=== PATIENT | male | born 1960 | race Caucasian/White ===

== ENCOUNTER 2020-02-09 13:14 | Emergency (ER) | payer MEDICARE, SELFPAY ==
[2020-02-09 13:32] LABS: #Eosinphils 0.2 thou/uL (0.0-0.7); #Lymphocytes 1.4 thou/uL (1.20-3.40); #Monocytes 0.5 thou/uL (0.11-0.59); #Neutrophils 6.8 thou/uL (1.40-6.50); %Basophils 0.5 % (0.0-1.0); %Eosinophils 2.6 % (0.0-10.0); %Lymphocytes 16.1 % (21.0-51.0); %Monocytes 5.6 % (0.0-10.0); %Neutrophils 75.2 % (42.0-75.0); Hemoglobin 14.5 g/dL (14.0-18.0); Mean Corpuscular HGB CONC 34.2 g/dL (32.0-36.0); Mean Corpuscular Hemoglobin 32.5 pg (27.0-31.0); Mean Corpuscular Volume 95.1 fL (78.0-98.0); Mean Platelet Volume 6.4 fL (7.4-10.4); Platelet Count 347 thou/uL (130-400); RBC Distribution Width 11.3 % (11.5-14.5); Red Blood Cell (RBC) Count 4.47 mill/uL (4.70-6.10)
[2020-02-09 13:38] LABS: INR-International Normal Ratio 0.9; PTT 26.5 sec (22.9-36.1); Prothrombin Time 12.7 sec (12.0-14.7)
--- NOTE | 2020-02-09 13:38 | RAD ---
XR Chest 1 View Portable History: Trauma Comparison: None. Findings: Lungs are mildly hypoinflated with scattered atelectasis. No pneumothorax. No effusion. No acute displaced rib fracture. Impression: No acute intrathoracic abnormality.
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
--- NOTE | 2020-02-09 13:42 | CT ---
CT BRAIN WITHOUT CONTRAST: Date: 02/09/2020 HISTORY: Trauma. Headache. FINDINGS: No evidence of acute infarct, hemorrhage, midline shift, or abnormal extra-axial fluid collections ar e seen. The ventricular size is normal and the basilar cisterns are patent. The bony calvarium is int act. There is mucosal disease in the paranasal sinuses. A soft tissue contusion is seen in the right posterior parietal scalp with radiopaque densities suspicious for foreign bodies. IMPRESSION: No CT evidence of acute intracranial process. Findings discussed over the telephone with ER physician, Dr. Meza, at [phone] hours. CODE CR. POS: [facility]
[2020-02-09] MEDS ORDERED: CEFAZOLIN 1 GM VIAL ONE ×3 (13:51→14:02)
[2020-02-09] MEDS ORDERED: Boostrix 0.5 ML (Tdap) VIAL ONE (13:51)
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
[2020-02-09 14:04] LABS: ALT (SGPT) 18 U/L (8-55); AST (SGOT) 16 U/L (5-34); Albumin 3.8 g/dL (3.5-5.0); Alkaline Phosphatase 85 U/L (40-110); Anion Gap 14 mmol/L (10-20); BUN (Urea Nitrogen) 14 mg/dL (8.4-25.7); Bilirubin, Total 0.3 mg/dL (0.2-1.2); Calc. Creatinine Clearance 0 mL/min (70-130); Calcium 8.9 mg/dL (7.8-10.44); Carbon Dioxide 21 mmol/L (22-29); Chloride 102 mmol/L (98-107); Estimated GFR-MDRD 55; Globulin 2.7 g/dL (2.4-3.5); Glucose 94 mg/dL (70-105); Protein, Total 6.5 g/dL (6.0-8.3); Sodium 133 mmol/L (136-145)
[2020-02-09] MEDS ORDERED: Lidocaine 1% (PF) 30 ML VIAL ONE (14:09)
[2020-02-09] MEDS ORDERED: Fentanyl 100 MCG/2 ML VIAL ONE (14:18)
[2020-02-09] MEDS ORDERED: Iopamidol-370 76% 500 ML 1 ML ONE (14:21)
[2020-02-09 14:28] LABS: Acetaminophen Less than 6.0 mcg/mL (10.0-30.0); Alcohol 66 mg/dL (Less than 10); CK (CPK) 184 U/L (30-200); Salicylate Less than 8.0 mg/dL (15.0-30.0)
[2020-02-09] MEDS ORDERED: Ibuprofen 800 MG TAB ONE (23:32)
[2020-02-09] MEDS ORDERED: Acetaminophen 500 MG TAB ONE (23:32)
[2020-02-10] MEDS ORDERED: Lorazepam 1 MG TAB ONE (09:27)
--- NOTE | 2020-02-18 14:23 | EKG ---
Test Reason : Blood Pressure : / mmHG Vent. Rate : 089 BPM Atrial Rate : 089 BPM P-R Int : 138 ms QRS Dur : 112 ms QT Int : 370 ms P-R-T Axes : 056 089 055 degrees QTc Int : 450 ms Normal sinus rhythm Incomplete right bundle branch block Borderline ECG Confirmed by IZABEL LYNNE DO ([id number]), editor city [place] MAYNARD ([id number]) on 02/18/2020 2:23:25 PM Referred By: Confirmed By:IZABEL LYNNE DO
== END 2020-02-10 09:54 ==
LOC: ERS 13:14
DX: S01.01XA Laceration without foreign body of scalp, initial encounter (principal); S01.311A Laceration without foreign body of right ear, initial encounter; F43.20 Adjustment disorder, unspecified; R45.851 Suicidal ideations; F17.210 Nicotine dependence, cigarettes, uncomplicated; Z79.899 Other long term (current) drug therapy; V89.2XXA Person injured in unspecified motor-vehicle accident, traffic, initial encounter
CPT/HCPCS: 12002; 12011; 36415; 70450; 71045; 71260; 72125; 74177; 80053; 80307; 82550; 83605; 84443; 84484; 85025; 85610; 85730; 90471; 90715; 93005; 94760; 96365; 96375; G0390; J0690; J2001; J3010; Q9967